=== PATIENT | female | born 1985 | race Caucasian/White ===

== ENCOUNTER 2016-07-24 06:12 | Inpatient (IN) ==
[2016-07-24] MEDS ORDERED: Lidocaine 1% 20 ML MDV ID ONE (06:51)
[2016-07-24] MEDS ORDERED: CeFAZolin Pre 2,000 MG/100 ML 2,000 MG/100 ML BAG IVPB ONE (06:51)
[2016-07-24] MEDS ORDERED: Ringers Solution, Lactated 1,000 ML IVC SCH (07:00)
[2016-07-24] MEDS ORDERED: diazePAM 5 MG TABLET PO ONE ×2 (07:02→17:41)
[2016-07-24] MEDS ORDERED: Ondansetron 4 MG/2 ML VIAL ONE (07:11)
[2016-07-24] MEDS ORDERED: *HR* Rocuronium Bromide 50 MG/5 ML VIAL ONE (07:11)
[2016-07-24] MEDS ORDERED: *HR* FentaNYL (PF) 100 MCG/2 ML VIAL ONE ×3 (07:12→11:27)
[2016-07-24] MEDS ORDERED: *HR* Propofol 200 MG/20 ML VIAL IVP ONE (07:12)
[2016-07-24] MEDS ORDERED: *HR* Midazolam HCl 2 MG/2 ML VIAL ONE (07:12)
--- NOTE | 2016-07-24 07:12 | Anesthesia Evaluation PreOp ---
Date of Encounter: 07/24/16 Time of Encounter: 07:10 - Past History Planned Operation: Posterior Lumbar Interbody Fusion Cardiac History: Denies any Significant Hx Pulmonary History: Denies Any Significant HX NETWORK SUPPORT MANAGER History: Other (Paresthesia and weakness Rt LE) Other Medical History: Thyroid, GERD, Other (Thrombocytopenia during , Severe Anxiety/Depression) Anesthesia History: No Prior Anesthetic Complications : No Test: Negative Alcohol Use: none Drug use: none Medications and Allergies Allergies tramadol Adverse Reaction (Unverified 07/18/16 12:15) See Comments - Meds/Allergy Pre-op Review Medications Reviewed: Yes Allergies Reviewed: Yes Beta Blockers on Current Med List: No Anesthesia Results - Labs Laboratory Tests 07/18/16 07/18/16 07/18/16 12:20 12:20 12:20 Hgb 12.9 Hct 39.4 Plt Count 251 PT 10.9 INR 1.0 APTT 31.1 Sodium 136 Potassium 4.6 H BUN 14 Creatinine 0.72 Serum , Qual 07/18/16 12:20 Hgb Hct Plt Count PT INR APTT Sodium Potassium BUN Creatinine Serum , Qual Negative Anesthesia Exam O2 Sat Height 1.68 m Height 1.68 m Height 1.68 m Weight 80.286 kg Weight 80.286 kg Weight 80.286 kg O2 Sat by Pulse Oximetry 97 O2 Sat by Pulse Oximetry 97 Vital Signs Temp Pulse Resp BP Pulse Ox 98.1 F 83 18 120/79 97 07/24/16 06:48 07/24/16 06:48 07/24/16 06:48 07/24/16 06:48 07/24/16 06:48 Height: 5'6 Weight: 177 lbs NPO (# of Hours): MN - HEENT Pupil (Motor): Pupils equal, EOMI Mallampati: III Teeth: Normal Oral Opening: Less than or equal to 3 - NETWORK SUPPORT MANAGER LOC: Oriented NETWORK SUPPORT MANAGER Motor: Normal RUE, Normal LUE, Normal LLE, Normal Face, Deficit RLE ( weakness) NETWORK SUPPORT MANAGER Sensory: Normal: RUE, LUE, LLE, Face, Deficit: RLE (paresthesia) - Cardiac Rhythm: Regular Murmur: None JVD: No Carotid Bruit: No - Pulmonary Breath Sounds: bilateral Clear Respiratory Effort: Symmetrical Anesthesia Assess/Plan ASA Score: 2 Modified [place] Scale for Level of Consciousness: Cooperative, oriented, and tranquil Anesthetic Plan: General Monitoring Plan: Standard Monitors Recovery Plan: PACU (Discussed GA, agrees to proceed)
[2016-07-24] MEDS ORDERED: Lidocaine -MPF 2% 2 ML VIAL ONE (07:13)
--- NOTE | 2016-07-24 07:38 | History & Physical Report ---
Date of Encounter: 07/24/16 Time of Encounter: 07:37 24 Hour HP Update - Instructions Instructions: If the History and Physical is less than 30 days old and was completed prior to A.M. admission and or procedure and has NOT been updated on calendar day of procedure please complete this update prior to performing procedure. - Update Patient reports changes in Medical Condition: No Changes in assessment/condition: No Changes in Medication: No Preop tests/diagnostics Reviewed: Yes Pre-Op MRSA Screen: Negative Surgery Remains Indicated: Yes Consent for Planned Operative Procedure(s) Verified: Yes - Pre-Operative Checklist Preoperative Checklist Indicated: No Prophylactic Antibiotic Ordered: Yes Home Medications Include Beta Jethro: No Beta Jethro Taken Today (Day of Surgery): No Beta Jethro Taken Yesterday (Day Prior to Surgery): No Is VTE Prophylaxis Indicated?: Yes
[2016-07-24] MEDS ORDERED: Dexamethasone 4 MG/ML VIAL ONE (08:04)
[2016-07-24] MEDS ORDERED: *HR* Remifentanil 1 MG VIAL IVP ONE ×2 (08:05→08:06)
[2016-07-24] MEDS ORDERED: *HR* HYDROmorphone 2 MG/ML SYRINGE ONE (10:47)
[2016-07-24] MEDS ORDERED: *HR* Promethazine 25 MG/ML VIAL IVP PRN (11:02)
[2016-07-24] MEDS ORDERED: *HR* Morphine 10 MG/ML VIAL ONE ×2 (11:16→11:19)
--- NOTE | 2016-07-24 11:23 | Orthopedic Operative Note ---
Date of procedure: 07/24/16 Pre-op diagnosis: Recurrent disc herniation, lumbar radiculopathy, s/p microdiscectomy Post-op diagnosis: same Operation/Findings: Posterior lumbar interbdy fusion L5-S1: The patient successfully underwent general endotracheal anesthesia. The patient was given antibiotics prior to the start of the procedure. Compression boots and stockings were used for deep vein thrombosis prophylaxis. A Beach catheter was placed. Leads for neuro monitoring were placed on the upper and lower extremities. This included the cranium. The neuro monitoring personnel confirmed there were satisfactory readings prior to the start of the procedure. The patient was turned prone on the Akbar table. The back was prepped and draped in the usual sterile fashion. An incision was was marked and centered over the involved L5-S1 levels in the mid line. The incision was deepened through the lumbar fascia. Bovie cautery and Aviles elevators were used to reflect the paraspinal musculature at the lateral extent of the transverse processes of the involved levels. Nilda clamps were placed over the L5 spinous process. An intraoperative lateral fluoroscopy graft was obtained. A conversation was held between the surgeon and radiologist and both confirmed we had the correct L5-S1 operative levels. We then placed pedicle screws in standard fashion with the aid of fluoroscopy and anatomic landmarks. Briefly a starter awl was used. A gearshift was subsequently used to enter the tugboat pilot hole via a transpedicular route into the vertebral body. The tugboat pilot hole was tapped with an undersized instrument, and subsequently four 6.5 x 40 mm pedicle screws were placed bilaterally at the indicated L5-S1 levels. The screws were tested with the aid of the neurologic monitoring staff via pedicle screw stimulation. All reading suggested there was no significant cortical wall breech. The screws were also evaluated fluoro- graphically and appeared to be in satisfactory position. We then turned our attention to the decompression portion of the procedure. We removed the supraspinous and interspinous ligaments and subsequently the insertion of the ligamentum flavum on the undersurface of the proximal L5 lamina was dislodged with a curette. We then removed the ligamentum flavum as well as undercut the facets at this L5-S1 level to decompress the lateral recesses. There was noted to be a large synovial cyst coming off the L5-S1 facet joint. This was removed and debrided. We also performed a L5 laminectomy. After the decompression, which was over and above that which was required to place the interbody graft, the foramen and traversing roots at this L5-S1 level were found to be free and patent. We also took part of the medial facet in order to aid in the decompression. We then protected the neural elements including the thecal sac and traversing nerve root on the right with a dural retractor. We made an annulotomy into the L5-S1 disc space and then removed entire disc material using Pituitary instruments. We trialed various size grafts after the endplates were prepared for graft insertion. A 10 x 26 enter body graft fit well within the L5-S1 disc space. We obtained some bone from the right posterior superior iliac spine through us a separate incision and combined with this with the bone which we had saved from the laminectomy portion of the procedure. This autograft bone was first placed in the anterior portion of the L5-S1 disc space and additional bone was placed within the interbody graft spacer. We then placed the interbody graft spacer obliquely across the L5-S1 disc space towards the midline while protecting the neural elements with a root retractor. When the graft was found to be in satisfactory position the fixed income portfolio manager was removed. We then copiously irrigated the wound. We then decorticated the L5 transverse processes as well as the L5-S1 facet joints of the involved levels to aid in the posterolateral fusion. We placed autograft bone in the lateral gutters over these regions. We then placed rods within the screw heads of the involved levels and first locked the distal screws and then subsequently locked the proximal screws. We then closed the wound in layers with 1 Vicryl for the fascia, 2-0 Vicryl. Subcutaneous tissue, and Dermabond was used for skin closure. Sterile dressings were placed over the wound. The patient was turned supine on a hospital bed and extubated. All sponge instruments and needle counts were correct at the end of the procedure. The patient tolerated the procedure well without complications. Anesthesia: GETA Surgeon: Navid Wallace Jr Estimated blood loss (cc): 150 Condition: stable Disposition: PACU
[2016-07-24] MEDS: *HR* HYDROmorphone (PF) 1 MG/ML SYRINGE IVP PRN ×3 (11:37→23:24)
--- NOTE | 2016-07-24 11:56 | Anesthesia Evaluation Post Op ---
Date of Encounter: 07/24/16 Time of Encounter: 12:00 - Vital Signs Vital Signs: Vital Signs/O2 Sat/Glucose, Most Current Temp Pulse Resp BP Pulse Ox 07/24/16 11:50 94 16 122/79 99 07/24/16 11:40 90 16 119/75 95 07/24/16 11:30 98.8 F 95 16 129/86 97 - Lungs Lungs: Clear Ascult./Percussion - Airway Airway: Non-obstructed - Cardiovascular Regular Rate - Mental Status Mental Status: Alert & Oriented, Answers Appropriately - Pain Pain Scale: 1 - Nausea Vomiting Nausea Vomiting: Not Present - Hydration Hydration: Ice chips - Discharge PostOp Status: Transfer Patient to floor
[2016-07-24] MEDS ORDERED: Ondansetron 4 MG/2 ML VIAL IVP PRN (12:28)
[2016-07-24] MEDS ORDERED: *HR* OxyCODONE Immed Rel 5 MG TABLET PO PRN (12:28)
[2016-07-24] MEDS ORDERED: Sennosides 8.6 MG TABLET PO PRN (12:28)
[2016-07-24] MEDS ORDERED: Naloxone 0.4 MG/ML INJ IVP PRN (12:28)
[2016-07-24] MEDS ORDERED: *HR* Morphine 2 MG/ML SYRINGE IVP PRN ×2 (12:28)
[2016-07-24] MEDS: Ringers Solution, Lactated 1,000 ML IVC SCH (15:29)
[2016-07-24] MEDS: ceFAZolin 2,000 MG in D5% in Water 100 ML IVPB SCH (16:07)
[2016-07-24] MEDS: Acetaminophen 325 MG TABLET PO PRN (17:34)
[2016-07-24] MEDS: diazePAM 5 MG TABLET PO SCH (17:40)
[2016-07-24] MEDS: *HR* OxyCODONE Immed Rel 5 MG TABLET PO PRN (20:27)
[2016-07-25] MEDS: ceFAZolin 2,000 MG in D5% in Water 100 ML IVPB SCH (00:20)
[2016-07-25] MEDS: *HR* OxyCODONE Immed Rel 5 MG TABLET PO PRN ×4 (00:58→20:23)
[2016-07-25 06:39] LABS: Basophils # 0.1 K/mcL (0.0-0.2); Basophils % 0.3 %; Eosinophils % 0.2 %; Hematocrit 32.7 % (35.3-44.9); Immature Granulocytes % 0.6 % (0-4); Lymphocytes # 4.2 K/mcL (0.6-4.6); Lymphocytes % 21.2 %; Mean Corpuscular HGB Conc 32.1 g/dL (31.6-35.5); Mean Corpuscular Hemoglobin 30.3 pg (28.0-33.3); Mean Corpuscular Volume 94.5 fL (83.0-100.0); Mean Platelet Volume 11.1 fL (9.4-12.4); Monocytes # 1.7 K/mcL (0.0-1.3); Monocytes % 8.6 %; Neutrophils # 13.6 K/mcL (1.6-8.9); Platelet Count 165 K/mcL (140-400); Red Blood Count 3.46 M/mcL (3.82-4.97); Red Cell Distribution Width 13.6 % (11.5-14.5); Segmented Neutrophils % 69.1 %
[2016-07-25 06:47] LABS: Hemoglobin 10.5 g/dL (11.5-15.4)
[2016-07-25 06:52] LABS: BUN/Creatinine Ratio 11 (6-26); Blood Urea Nitrogen 7 mg/dL (7-20); Calcium 8.7 mg/dL (8.6-10.8); Carbon Dioxide 24 mEq/L (19-29); Chloride 108 mEq/L (98-109); Glucose 135 mg/dL (70-99); Osmolality,Calculated 292 (280-300); Potassium 3.9 mEq/L (3.5-4.5); Sodium 141 mEq/L (136-145); eGFR For African Americans > 60 (> 60); eGFR For Non-African Americans > 60 (> 60)
[2016-07-25] MEDS: Ringers Solution, Lactated 1,000 ML IVC SCH ×2 (08:01→08:46)
[2016-07-25] MEDS: Loratadine 10 MG TABLET PO SCH (08:50)
[2016-07-25] MEDS: diazePAM 5 MG TABLET PO SCH ×2 (08:50→20:24)
[2016-07-25] MEDS: BuPROPion XL (24 HR) 150 MG TABLET PO SCH (08:50)
--- NOTE | 2016-07-25 17:11 | Spine Progress Note ---
Date of Encounter: 07/25/16 Time of Encounter: 17:10 Subjective Principal diagnosis: recurrent disc herniation, lumbar radiculopathy, lumbar stenosis Interval history: The patient is without complaints. Afebrile vital signs are stable. Incision is clean dry and intact. Neurovascularly intact with regard to bilateral lower extremities. Fires all upper and lower extremity motor groups. Negative straight leg raise. Assessment :stable. Plan mobilize ,continue analgesics, discharge planning. Objective Vital signs: Vital Signs Temp Pulse Resp BP Pulse Ox 07/25/16 14:48 76 18 130/75 96 07/25/16 14:08 98.5 F 73 16 127/78 96 07/25/16 11:35 98.3 F 76 18 130/75 96 07/25/16 07:50 97.8 F 80 16 96/60 98 07/25/16 06:40 98.4 F 73 16 103/68 99 07/25/16 04:00 98.1 F 79 18 101/62 98 07/24/16 23:21 98.8 F 88 18 125/80 99 07/24/16 20:00 98.2 F 83 17 123/78 98 Intake and Output 07/25/16 07/25/16 07/25/16 07:59 15:59 23:59 Output Total 1700 / 1700 Balance -1700 / -1700 Output: Catheter 1700 / 1700 Other: # Voids 2 - Labs CBC & BMP: 07/25/16 06:16 07/25/16 06:16 Labs: Abnormal lab results WBC 19.7 K/mcL (4.3-11.1) H D 07/25/16 06:16 RBC 3.46 M/mcL (3.82-4.97) L 07/25/16 06:16 Hgb 10.5 g/dL (11.5-15.4) L D 07/25/16 06:16 Hct 32.7 % (35.3-44.9) L 07/25/16 06:16 Neutrophils # 13.6 K/mcL (1.6-8.9) H 07/25/16 06:16 Monocytes # 1.7 K/mcL (0.0-1.3) H 07/25/16 06:16 Glucose 135 mg/dL (70-99) H 07/25/16 06:16 Consult Discharge Plan - Plan Referrals: Twila Jett, SCRUBBING MACHINE OPERATOR [Primary Care Provider] -
[2016-07-25] MEDS: *HR* HYDROmorphone (PF) 1 MG/ML SYRINGE IVP PRN (22:57)
[2016-07-26] MEDS: *HR* HYDROmorphone (PF) 1 MG/ML SYRINGE IVP PRN (04:52)
[2016-07-26] MEDS: Loratadine 10 MG TABLET PO SCH (08:49)
[2016-07-26] MEDS: *HR* OxyCODONE Immed Rel 5 MG TABLET PO PRN ×3 (08:50→18:39)
[2016-07-26] MEDS: BuPROPion XL (24 HR) 150 MG TABLET PO SCH (08:50)
[2016-07-26] MEDS: diazePAM 5 MG TABLET PO SCH (08:51)
[2016-07-26 11:06] VITALS: BP 138/86
[2016-07-26] MEDS: Acetaminophen 325 MG TABLET PO PRN (12:09)
--- NOTE | 2016-07-26 17:28 | Discharge Summary ---
Date of Encounter: 07/26/16 Time of Encounter: 17:25 - Discharge Diagnosis (1) Lumbar disc herniation Priority: Primary Status: Chronic (2) Lumbar radiculopathy Priority: Secondary Status: Chronic - Discharge Medications Prescriptions: OxyCODONE Immed Rel [Roxicodone 5 MG] 5 mg PO Q4HR PRN #60 tablet PRN Reason: Severe Pain Home Medications: Bupropion HCl [Wellbutrin Xl] 300 mg PO DAILY 07/24/16 [History] Diazepam [Valium] 5 mg PO BID 07/24/16 [History] Gabapentin [Neurontin] 600 mg PO TID 07/24/16 [History] Levothyroxine [Synthroid] 75 mcg PO 0630 07/24/16 [History] Loratadine [Claritin] 10 mg PO DAILY 07/24/16 [History] Omeprazole [PriLOSEC] 40 mg PO DAILY 07/24/16 [History] OxyCODONE Immed Rel [Roxicodone 5 MG] 5 mg PO Q4HR PRN #60 tablet 07/26/16 [Rx] Allergies/Adverse Reactions: Allergies tramadol Adverse Reaction (Verified 07/24/16 07:34) See Comments - Impressions ITS Impressions Lumbar Spine X-Ray 07/24/16 00:00 IMPRESSION: Postop changes without complicating feature. D/ / Aleksandr Rodriguez MD / Aleksandr Rodriguez MD Interpreting Provider: Aleksandr Rodriguez MD Date of admission: 07/24/16 12:17 Primary care physician: Twila Jett CNP Consults: 07/24/16 12:28 Consult to Occupational Therapy [CONS] Routine Comment: Evaluate, develop and implement POC Consult to Physical Therapy [CONS] Routine Comment: Evaluate, develop and implement POC Consult to Spine Navigator [CONS] [CONS] Routine - Patient Status Disposition: Home, Self-Care Condition: Good Functional capacity at discharge: independent ambulation Overall status at discharge: patient is progressing back to baseline - Discharge Instructions Follow Up With: Kim Chilel PAC [Physician Chief Construction Inspector] - 08/07/16 8:40 Twila Wang CNP [Primary Care Provider] - Additional Instructions: Discharge Instructions: Lumbar Please call [facility] ([phone]), your Primary Care Physician, or report to the ER if you have any of the following symptoms: Fever greater that 101.5, increased pain/redness/drainage/odor for your incision site or any other concerning symptoms. ACTIVITY * May Shower * No Tub Baths * No lifting greater than 10 pounds * No Smoking * No Swimming * No off Ground Activities (Running, Climbing, Ladders, Horseback Riding) * No Driving * Wear Back Brace when up walking if lumbar fusion done MEDICATIONS: Upon discharge resume your home medications. Take all the medications as prescribed. Take a stool softener if taking narcotic pain medications. Stool softeners are only effective if you drink enough fluids. Drink 6-8 glass of water or fluids a day, unless this is not allowed for another health problem. Despite using stool softeners, if you haven't had a bowel movement in 3 days, please switch to a gentle laxative. Gentle laxatives are sold over the counter. You should have a bowel movement within 24 hours, if not call the office. You will be discharged from the hospital with a prescription for pain medication. You are encouraged to decrease the use of narcotic pain medication as tolerated. Should you require a refill, please call the office. It is best to call 48-72 hours in advance of needing a prescription refill so you don't run out of medication. WOUND CARE: Remove Dressing Tomorrow. Leave incision open to air. Pat dry when you get out of the shower. FOLLOW-UP: Please follow up with your surgeon in the orthopedic clinic in 2 weeks from the day of surgery. References: [employer] ([email or web address]) - Diet and Activity Activity: as per physical therapy Diet: advance to your usual diet - Hospital Course Hospital course: Ms. Silav is a 30 year old female The patient had an uneventful postoperative course. Progressed from intravenous analgesic needs to oral analgesic needs only. Remained neurovascularly intact and mobilized satisfactorily. All intraoperative and/or postoperative radiographic studies were satisfactory. Patient is discharged with plan for rehabilitation and follow-up in 2 weeks post discharge on analgesic medication and patient's home medications. - Time Spent with Patient Total time spent providing and/or coordinating discharge services: - VTE Documentation of Mechanical Device: Venous foot pump, device
[2016-07-26] MEDS ORDERED: FLU VACC QS2016-17 36MOS UP/PF 0.5 ML SYRINGE IM ONE (17:48)
== END 2016-07-26 19:05 | disposition home or self-care (01) | DRG 304 ==
LOC: SAMDAY 06:12 → 3NENU 12:17
PROVIDERS: ADMIT Orthopaedic Surgery Orthopaedic Surgery of the Spine; ATTEND Orthopaedic Surgery Orthopaedic Surgery of the Spine